=== PATIENT | female | born 1995 | race Caucasian/White ===

== ENCOUNTER 2018-11-24 00:08 | Inpatient (IN) | payer SELFPAY ==
[~2018-11-24] VITALS: Ht 152.4 cm; Wt 56.0 kg
[2018-11-24] MEDS ORDERED: PRENATAL VITAM1 EAC6 PO (02:11)
--- NOTE | 2018-11-24 08:23 | PR ---
[facility] [address] [facility] [place], [place] [address] Signed Progress Notes IP Datetime Report Generated by CPN: 11/24/2018 08:23 PROGRESS NOTES: [id number] Impression: Reassuring heart rate Procedures: Artificial ROM; Sterile Vag Exam Plan: Continue present management Informed Consent Obtain: Vaginal Delivery; Induction of Labor; Risks, Benefits and Alternatives Discussed VITAL SIGNS: [id number] Vital Signs: Reviewed; Within Normal Limits EXAM: [id number] Dilatation: 1.5 Effacement: 75 Station: -2 Uterine Contractions: q 1 to 2 min MEMBRANES: [id number] Membrane Status: Intact ROM Note: AROM with moderate clear fluid seen Comments: Kapil well. Will continue. Epidural prn. Fetus A: [id number] FHR Baseline: 120 Variability: Moderate 6-25bpm Accelerations: 15X15 Decelerations: None FHR Category: Category I Presentation: Vertex Comments on Fetus A: No evidence of metabolic acidosis Fetus B: [id number] Signing Physician: Brandee Taylor MD Copies: ~ *Electronically Signed* 11/24/18 0823 BRANDEE TAYLOR MD PATIENT NAME: REINALDO PADILLA PROGRESS NOTE DATE OF : [birth year] PHYSICIAN: BRANDEE TAYLOR MD RPT #: [id number] REPORT IS CONFIDENTIAL AND NOT TO BE RELEASED WITHOUT AUTHORIZATION
--- NOTE | 2018-11-24 11:52 | PR ---
[facility] [address] [facility] [place], [place] [address] Signed Progress Notes IP Datetime Report Generated by CPN: 11/24/2018 11:52 PROGRESS NOTES: [id number] Impression: Reassuring heart rate Procedures: Sterile Vag Exam Plan: Anesthesia consult Informed Consent Obtain: Vaginal Delivery; Induction of Labor; Risks, Benefits and Alternatives Discussed VITAL SIGNS: [id number] Vital Signs: Reviewed; Within Normal Limits EXAM: [id number] Dilatation: 3.5 Effacement: 85 Station: -2 Uterine Contractions: q 2 to 3 min MEMBRANES: [id number] Membrane Status: Intact ROM Note: AROM with moderate clear fluid seen Comments: No real progress and very uncomfortable despite prior epidural. Feel anesthesia needs to come back for consult and probable redo of epidural. Fetus A: [id number] FHR Baseline: 120 Variability: Moderate 6-25bpm Accelerations: 15X15 Decelerations: None FHR Category: Category I Presentation: Vertex Comments on Fetus A: No evidence of metabolic acidosis Fetus B: [id number] Signing Physician: Brandee Taylor MD Copies: ~ *Electronically Signed* 11/24/18 1152 BRANDEE TAYLOR MD PATIENT NAME: REINALDO PADILLA PROGRESS NOTE DATE OF : [birth year] PHYSICIAN: BRANDEE TAYLOR MD RPT #: [id number] REPORT IS CONFIDENTIAL AND NOT TO BE RELEASED WITHOUT AUTHORIZATION
--- NOTE | 2018-11-24 13:42 | PR ---
[facility] [address] [facility] [place], [place] [address] Signed Progress Notes IP Datetime Report Generated by CPTabatha: 11/24/2018 13:42 PROGRESS NOTES: [id number] Impression: Slow Progression of Labor Procedures: Intrauterine Pressure Catheter; Sterile Vag Exam Plan: Continue present management Informed Consent Obtain: Vaginal Delivery; Induction of Labor; Risks, Benefits and Alternatives Discussed VITAL SIGNS: [id number] Vital Signs: Reviewed; Within Normal Limits EXAM: [id number] Dilatation: 4.0 Effacement: 90 Station: -2 Uterine Contractions: q 1 to 3 min MEMBRANES: [id number] Membrane Status: Intact ROM Note: AROM with moderate clear fluid seen Comments: Slow progress. Will place IUPC and augment with pit as needed. Fetus A: [id number] FHR Baseline: 125 Variability: Moderate 6-25bpm Accelerations: 15X15 Decelerations: None FHR Category: Category I Presentation: Vertex Comments on Fetus A: No evidence of metabolic acidosis Fetus B: [id number] Signing Physician: Brandee Taylor MD Copies: ~ *Electronically Signed* 11/24/18 1342 BRANDEE TAYLOR MD PATIENT NAME: REINALDO PADILLA PROGRESS NOTE DATE OF : [birth year] PHYSICIAN: BRANDEE TAYLOR MD RPT #: [id number] REPORT IS CONFIDENTIAL AND NOT TO BE RELEASED WITHOUT AUTHORIZATION
--- NOTE | 2018-11-25 07:43 | PR ---
[facility] [address] [facility] [place], [place] [address] Signed PP Progress Notes Datetime Report Generated by CPN: 11/25/2018 07:43 SUBJECTIVE: [id number] Pain: Within normal limits Nausea/Vomiting: Denies Vital Signs: [id number] Vital Signs: Reviewed; Within Normal Limits EXAM: [id number] Cardiovascular: Not Done Respiratory: Not Done Abdomen/Uterus: Abnormal Lochia: Normal Vulva/Perineum: Not Done Breasts: Not Done CVA Tenderness: Not Done Extremities: Normal Incision: Not Applicable Progress: Normal Exam Comments: Fundus firm, NT @ U-2. H/H 11.1/32.9, WBC 10.8, plat 143k IMPRESSION/PLAN/PROCEDURES: [id number] Impression: Normal progression Plan: Discharge Procedures: Varicella Progress Notes: Doing well. She desires D/C later today. Signing Physician: Brandee Taylor MD Copies: ~ *Electronically Signed* 11/25/18 0743 BRANDEE TAYLOR MD PATIENT NAME: REINALDO PADILLA PROGRESS NOTE DATE OF : [birth year] PHYSICIAN: BRANDEE TAYLOR MD RPT #: [id number] REPORT IS CONFIDENTIAL AND NOT TO BE RELEASED WITHOUT AUTHORIZATION
== END 2018-11-25 15:30 | disposition home or self-care (01) | DRG 806 ==
LOC: FBC 00:08
PROVIDERS: ADMIT Obstetrics & Gynecology
PROC: 10E0XZZ Delivery of Products of Conception, External Approach (ICD-10-PCS; principal; 2018-11-24)
PROC: 10907ZC Drainage of Amniotic Fluid, Therapeutic from Products of Conception, Via Natural or Artificial Opening (ICD-10-PCS; 2018-11-24)
PROC: 10H07YZ Insertion of Other Device into Products of Conception, Via Natural or Artificial Opening (ICD-10-PCS; 2018-11-24)
PROC: 3E0P7VZ Introduction of Hormone into Female Reproductive, Via Natural or Artificial Opening (ICD-10-PCS; 2018-11-24)
PROC: 00HU33Z Insertion of Infusion Device into Spinal Canal, Percutaneous Approach (ICD-10-PCS; 2018-11-24)
PROC: 3E0R3BZ Introduction of Anesthetic Agent into Spinal Canal, Percutaneous Approach (ICD-10-PCS; 2018-11-24)
PROC: 3E0134Z Introduction of Serum, Toxoid and Vaccine into Subcutaneous Tissue, Percutaneous Approach (ICD-10-PCS; 2018-11-25)
DX: O43.123 Velamentous insertion of umbilical cord, third trimester (principal); O99.354 Diseases of the nervous system complicating childbirth; Z37.0 Single live birth; G43.009 Migraine without aura, not intractable, without status migrainosus; Z79.899 Other long term (current) drug therapy; Z3A.39 39 weeks gestation of pregnancy; Z88.0 Allergy status to penicillin; Z23 Encounter for immunization; Z86.59 Personal history of other mental and behavioral disorders
CPT/HCPCS: 01960; 36415; 85027; 90716; J2590

== ENCOUNTER 2021-01-23 00:05 | Inpatient (IN) | payer OTHER ==
[~2021-01-23] VITALS: Ht 152.4 cm; Wt 64.0 kg
[~2021-01-23 00:05] MED LIST: PRENATAL VITAM1 EAC6 PO
--- NOTE | 2021-01-23 11:50 | PR ---
[facility] [address] [facility] [place], [place] [address] Signed Progress Notes IP Datetime Report Generated by CPN: 01/23/2021 11:50 PROGRESS NOTES: [id number] Impression: Normal Progression of Labor Plan: Continue Present Management VITAL SIGNS: [id number] Vital Signs: Reviewed; Within Normal Limits EXAM: [id number] Dilatation: 6.0 Effacement: 80 Station: -2 Contractions: every 2-4 minutes MEMBRANES: [id number] Membranes Status: Ruptured ROM Note: DR. Boggs ruptured forebag Comments: Getting uncomfortable again, feeling pressure lower down in pelvis. Anesthesia called for redose. FETUS A: [id number] FHR Baseline: 120 Variability: Moderate 6-25bpm Accelerations: 10X10 Presentation: Vertex FETUS B: [id number] Signing Physician: Pedro Boggs MD Copies: ~ *Electronically Signed* 01/23/21 1150 PEDRO BOGGS MD PATIENT NAME: REINALDO PADILLA PROGRESS NOTE DATE OF : [birth year] PHYSICIAN: PEDRO BOGGS MD RPT #: [id number] REPORT IS CONFIDENTIAL AND NOT TO BE RELEASED WITHOUT AUTHORIZATION
--- NOTE | 2021-01-23 13:10 | PR ---
[facility] [address] [facility] [place], [place] [address] Signed Progress Notes IP Datetime Report Generated by CPN: 01/23/2021 13:09 PROGRESS NOTES: [id number] Impression: Normal Progression of Labor Plan: Continue Present Management; Anticipate Vaginal Delivery VITAL SIGNS: [id number] Vital Signs: Reviewed; Within Normal Limits EXAM: [id number] Dilatation: 8.0 Effacement: 80 Station: -2 Contractions: every 2-4 minutes MEMBRANES: [id number] Membranes Status: Ruptured ROM Note: DR. Boggs ruptured forebag Comments: Comfortable wiht Epidural now. FETUS A: [id number] FHR Baseline: 120 Variability: Moderate 6-25bpm Accelerations: 10X10 Presentation: Vertex FETUS B: [id number] Signing Physician: Pedro Boggs MD Copies: ~ *Electronically Signed* 01/23/21 1309 PEDRO BOGGS MD PATIENT NAME: REINALDO PADILLA PROGRESS NOTE DATE OF : [birth year] PHYSICIAN: PEDRO BOGGS MD RPT #: [id number] REPORT IS CONFIDENTIAL AND NOT TO BE RELEASED WITHOUT AUTHORIZATION
--- NOTE | 2021-01-23 14:10 | PR ---
[facility] [address] [facility] [place], [place] [address] Signed Progress Notes IP Datetime Report Generated by CPN: 01/23/2021 14:10 PROGRESS NOTES: [id number] Impression: Normal Progression of Labor Plan: Anticipate Vaginal Delivery VITAL SIGNS: [id number] Vital Signs: Reviewed; Within Normal Limits EXAM: [id number] Dilatation: 9.0 Effacement: 90 Station: -1 Contractions: every 2-4 minutes MEMBRANES: [id number] Membranes Status: Ruptured ROM Note: DR. Boggs ruptured forebag Comments: Feeling increasing pressure. Fetus feels OP, will try "hands-knees" for a couple contractions. FETUS A: [id number] FHR Baseline: 120 Variability: Moderate 6-25bpm Accelerations: 10X10 Presentation: Vertex FETUS B: [id number] Signing Physician: Pedro Boggs MD Copies: ~ *Electronically Signed* 01/23/21 1410 PEDRO BOGGS MD PATIENT NAME: REINALDO PADILLA PROGRESS NOTE DATE OF : [birth year] PHYSICIAN: PEDRO BOGGS MD RPT #: [id number] REPORT IS CONFIDENTIAL AND NOT TO BE RELEASED WITHOUT AUTHORIZATION
--- NOTE | 2021-01-23 14:37 | PR ---
[facility] [address] [facility] [place], [place] [address] Signed Progress Notes IP Datetime Report Generated by CPN: 01/23/2021 14:37 PROGRESS NOTES: [id number] Impression: Normal Progression of Labor Plan: Anticipate Vaginal Delivery VITAL SIGNS: [id number] Vital Signs: Reviewed; Within Normal Limits EXAM: K3231200 Dilatation: 10.0 Effacement: 100 Station: 0 Contractions: every 2-4 minutes MEMBRANES: [id number] Membranes Status: Ruptured ROM Note: DR. Boggs ruptured forebag Comments: Had small anterior lip, which reduced with pushing, but now back again, so stopped pushing, will try right lateral position, to see if anterior lip will reduce. FETUS A: [id number] FHR Baseline: 120 Variability: Moderate 6-25bpm Accelerations: 10X10 Presentation: Vertex FETUS B: [id number] Signing Physician: Pedro Boggs MD Copies: ~ *Electronically Signed* 01/23/21 1437 PEDRO BOGGS MD PATIENT NAME: REINALDO PADILLA PROGRESS NOTE DATE OF : [birth year] PHYSICIAN: PEDRO BOGGS MD RPT #: [id number] REPORT IS CONFIDENTIAL AND NOT TO BE RELEASED WITHOUT AUTHORIZATION
--- NOTE | 2021-01-23 15:13 | PR ---
[facility] [address] [facility] [place], [place] [address] Signed Progress Notes IP Datetime Report Generated by CPN: 01/23/2021 15:13 PROGRESS NOTES: [id number] Impression: Normal Progression of Labor Other Impressions: Slow Progress Plan: Anticipate Vaginal Delivery VITAL SIGNS: P1527136 Vital Signs: Reviewed; Within Normal Limits EXAM: [id number] Dilatation: 10.0 Effacement: 100 Station: 0 Contractions: every 2-4 minutes MEMBRANES: [id number] Membranes Status: Ruptured ROM Note: DR. Boggs ruptured forebag Comments: Patient hurting; Anesthesia called for redose. Still 9.5 cm; tried right lateral position, hand-knees, previously tried pushing, but not yet complete. FETUS A: [id number] FHR Baseline: 120 Variability: Moderate 6-25bpm Accelerations: 10X10 Presentation: Vertex FETUS B: [id number] Signing Physician: Pedro Boggs MD Copies: ~ *Electronically Signed* 01/23/21 1513 PEDRO BOGGS MD PATIENT NAME: REINALDO PADILLA PROGRESS NOTE DATE OF : [birth year] PHYSICIAN: PEDRO BOGGS MD RPT #: [id number] REPORT IS CONFIDENTIAL AND NOT TO BE RELEASED WITHOUT AUTHORIZATION
--- NOTE | 2021-01-23 15:41 | PR ---
[facility] [address] [facility] [place], [place] [address] Signed Progress Notes IP Datetime Report Generated by CPN: 01/23/2021 15:41 PROGRESS NOTES: [id number] Impression: Normal Progression of Labor Other Impressions: Slow Progress Plan: Anticipate Vaginal Delivery VITAL SIGNS: [id number] Vital Signs: Reviewed; Within Normal Limits EXAM: [id number] Dilatation: 9.5 Effacement: 90 Station: 0 Contractions: every 2-4 minutes MEMBRANES: [id number] Membranes Status: Ruptured ROM Note: DR. Boggs ruptured forebag Comments: Anesthesia here for Epidural redose FETUS A: [id number] FHR Baseline: 120 Variability: Moderate 6-25bpm Accelerations: 10X10 Presentation: Vertex FETUS B: [id number] Signing Physician: Pedro Boggs MD Copies: ~ *Electronically Signed* 01/23/21 1541 PEDRO BOGGS MD PATIENT NAME: REINALDO PADILLA PROGRESS NOTE DATE OF : [birth year] PHYSICIAN: PEDRO BOGGS MD RPT #: [id number] REPORT IS CONFIDENTIAL AND NOT TO BE RELEASED WITHOUT AUTHORIZATION
--- NOTE | 2021-01-24 10:47 | PR ---
[facility] [address] [place] [address] Signed PP Progress Notes Datetime Report Generated by CPN: 01/24/2021 10:47 SUBJECTIVE: [id number] Pain: Within Normal Limits Nausea/Vomiting: Denies Vital Signs: [id number] Vital Signs: Reviewed; Within Normal Limits Notable Details: PP Hgb/Hct = 8..1/25.9 Abdomen/Uterus: Normal Lochia: Normal Extremities: Normal IMPRESSION/PLAN/PROCEDURES: [id number] Impression: Normal Progression Other Impression: Anemia, Chronic Plan: Continue Present Management; Discharge Procedures: None Progress Notes: Doing well, without complaint, would like to go home today Signing Physician: Pedro Boggs MD Copies: ~ *Electronically Signed* 01/24/21 1047 PEDRO BOGGS MD PATIENT NAME: REINALDO PADILLA PROGRESS NOTE DATE OF : [birth year] PHYSICIAN: PEDRO BOGGS MD RPT #: [id number] REPORT IS CONFIDENTIAL AND NOT TO BE RELEASED WITHOUT AUTHORIZATION
== END 2021-01-24 18:53 | disposition home or self-care (01) | DRG 807 ==
LOC: FBC 00:05
PROVIDERS: ADMIT General Practice; ATTEND General Practice
PROC: 10E0XZZ Delivery of Products of Conception, External Approach (ICD-10-PCS; principal; 2021-01-23)
PROC: 3E0R3BZ Introduction of Anesthetic Agent into Spinal Canal, Percutaneous Approach (ICD-10-PCS; 2021-01-23)
PROC: 00HU33Z Insertion of Infusion Device into Spinal Canal, Percutaneous Approach (ICD-10-PCS; 2021-01-23)
PROC: 0HQ9XZZ Repair Perineum Skin, External Approach (ICD-10-PCS; 2021-01-23)
PROC: 3E0P7VZ Introduction of Hormone into Female Reproductive, Via Natural or Artificial Opening (ICD-10-PCS; 2021-01-23)
DX: O99.02 Anemia complicating childbirth (principal); Z37.0 Single live birth; O77.0 Labor and delivery complicated by meconium in amniotic fluid; Z3A.39 39 weeks gestation of pregnancy; O70.0 First degree perineal laceration during delivery; O69.81X0 Labor and delivery complicated by cord around neck, without compression, not applicable or unspecified; D53.9 Nutritional anemia, unspecified; O66.0 Obstructed labor due to shoulder dystocia; Z88.0 Allergy status to penicillin
CPT/HCPCS: 01960; 82803; 85027; A9270; C9803; J2001; J2590; J2795; J3010; J7121; U0003